=== PATIENT | female | born 1950 | race Caucasian/White ===

== ENCOUNTER 2020-05-22 18:11 | Inpatient (IN) | payer MEDICARE ==
[~2020-05-22] VITALS: Ht 167.6 cm; Wt 56.2 kg
[2020-05-22] MEDS ORDERED: VENL150C2 PO (18:49)
[2020-05-22] MEDS ORDERED: QUET25TA PO (18:49)
[2020-05-22] MEDS: NICOTINE PATCH (21MG) 21 MG PATCH.TD24 TD SCH (19:34)
--- NOTE | 2020-05-22 19:36 | NUR ---
CALL FROM LAB. RAPID COVID NEGATIVE.
--- NOTE | 2020-05-22 19:49 | NUR ---
REPORT GIVEN TO SHANNAN DOMINGUEZ FOR TEMI
--- NOTE | 2020-05-22 19:55 | NUR ---
PT TRANSPORTED TO UNIT ON WHEELCHAIR. NOT IN ANY DISTRESS. PT IS IN STABLE CONDITION FOR TRANSPORT. EMT AT BEDSIDE
[2020-05-22 20:00] VITALS: BP 131/70
--- NOTE | 2020-05-22 20:00 | NUR ---
GPS RN-NOTE:ADMISSION ADMITTED A 69-YR OLD FEMALE, FROM [facility]. ADMITTED ON A 5150 FOR DTS/GD. PER HOLD, PT REPORTED SHE FELT HOPELESS DUE TO FINANCIAL DIFFICULTIES, LOSING JOB AND CONSTANT OVERDOSE ON ALCOHOL. PER PT SHE WANTS TO DUE TO HER AND SON NOT GETTING ALONG. PER NURSE PT WAS FOUND ON STREET SAYING SHE WANTS TO KILL HERSELF. UPON FACE TO FACE ASSESSMENT, PATIENT A/OX3, COOPERATIVE, DEPRESSED AND ANXIOUS AT TIMES. AMBULATORY WITH STEADY GAIT. PT WAS ADVISED OF HER HOLD. PT'S RIGHTS HANDBOOK AND A GUIDE TO PRESCRIPTION MEDICATIONS GIVEN. IN NO APPARENT DISTRESS NOTED. PT BELONGINGS WERE INVENTORIED AND CHECKED FOR CONTRABAND. PT. IS UNDER THE PSYCHIATRIC CARE OF DR. ISSA ORDERS OBTAINED. AND THE MEDICAL CARE OF DR. VELAZQUEZ. IN THE UNIT ASSESSED AND EVALUATED PT. SKIN BODY ASSESSMENT DONE. BED LOCKED AND PLACED IN LOWEST POSITION TO MAINTAIN SAFETY. FALL PRECAUTIONS IMPLEMENTED. WILL CONTINUE TO MONITOR Q15 MINS. FOR SAFETY AND BEHAVIOR. PATIENT PREFERS TO SIGN NON-DISCLOSURE OF INFORMATION DURING HER STAY AT THE HOSPITAL. WILL ENDORSE TO THE DAY SHIFT NURSE FOR CONTINUITY OF CARE.
[2020-05-22 20:38] VITALS: BP 131/70
[2020-05-22] MEDS ORDERED: BLOOD SUGAR DIAGNOSTIC 1 EACH STRIP IN ONE (21:00)
[2020-05-22] MEDS ORDERED: ACETAMINOPHEN 325 MG TABLET PO PRN (21:00)
[2020-05-22] MEDS ORDERED: MAG HYDROX/AL HYDROX/SIMETH 30 ML UDC PO PRN (21:00)
[2020-05-22] MEDS: LORAZEPAM 0.5 MG TABLET PO PRN (21:43)
--- NOTE | 2020-05-22 21:45 | NUR ---
GPS-RN NOTE: ANXIETY PATIENT C/O FEELING ANXIOUS. ADMINISTERED ATIVAN 0.5MG PO ORDERED. WILL CONTINUE TO MONITOR FOR PATIENT'S SAFETY.
[2020-05-22] MEDS ORDERED: QUETIAPINE FUMARATE 25 MG TABLET PO SCH (22:00)
--- NOTE | 2020-05-23 03:47 | NUR ---
GPS-RN NOTE: C/O HEADACHE PATIENT C/O HEADACHE, ON A PAIN SCALE OF 3/10. ADMINISTERED ACETAMINOPHEN 650MG PO ORDERED. WILL CONTINUE TO REASSESS.
--- NOTE | 2020-05-23 04:38 | NUR ---
GPS-RN NOTE: NAUSEA AND VOMITING PATIENT WAS THROWING UP X2 IN MODERATE AMOUNT, WITH FOOD CONTENT. V/S BP 100/55, R18, P74, T98.0, O2 SATURATION AT 98% ON RA. UPON ASSESSMENT, ABDOMEN IS SOFT AND NON-TENDER. PER PT. SHE HAD BOWEL MOVEMENT YESTERDAY. WILL CONTINUE TO MONITOR. 0500- SPOKE WITH ON-CALL EPIC FRUIT GRADER OPERATOR GI, NOTIFIED OF PATIENT'S CURRENT CONDITION WITH NEW ORDER OF ZOFRAN 4MG PO Q6HRS PRN NOTED AND CARRIED OUT. WILL CONTINUE TO MONITOR.
[2020-05-23] MEDS ORDERED: ONDANSETRON 4 MG TAB.RAPDIS ONE (04:56)
[2020-05-23] MEDS ORDERED: ONDANSETRON HCL 4 MG/5 ML SOLUTION PO PRN (05:00)
[2020-05-23] MEDS: ONDANSETRON 4 MG TAB.RAPDIS PO PRN ×2 (05:10→21:58)
[2020-05-23 08:00] VITALS: BP 131/90
[2020-05-23 08:40] LABS: ALBUMIN 3.7 g/dL (3.4-5.0); BILIRUBIN,TOTAL 0.6 mg/dL (0.2-1.0); CREATININE 0.5 mg/dL (0.6-1.3); POTASSIUM 3.6 mmol/L (3.5-5.1); TOTAL PROTEIN, SERUM 7.2 g/dL (6.4-8.2)
[2020-05-23] MEDS ORDERED: VENLAFAXINE XR 150 MG CAP.SR.24H PO SCH (09:00)
[2020-05-23] MEDS: NICOTINE PATCH (21MG) 21 MG PATCH.TD24 TD SCH (09:10)
[2020-05-23] MEDS: LORAZEPAM 0.5 MG TABLET PO PRN ×3 (09:10→19:47)
[2020-05-23] MEDS: TRAMADOL HCL 50 MG TABLET PO PRN (09:10)
--- NOTE | 2020-05-23 09:13 | NUR ---
patient c/o anxiety medicated with Ativan 0.5mg x1 will continue to monitor .
[2020-05-23] MEDS: GABAPENTIN 100 MG CAPSULE PO SCH ×2 (13:52→17:47)
--- NOTE | 2020-05-23 14:39 | NUR ---
RN NOTE :patient c/o anxiety medicated with Ativan 0.5mg x1 will continue to monitor .
[2020-05-23 16:00] VITALS: BP 139/91
--- NOTE | 2020-05-23 16:16 | NUR ---
SAMUEL FAMILY CONTACT: SAMUEL spoke with patient's son Fran Castro ([phone]) who stated he is the DPOA however he is out of town and does not have access to provide the documents right now. Fran stated he and the patient live together at home however have been having conflicts and have discussed alternate living arrangements. Fran stated that he will fruit or nut picker the patient and take her home should she like to return back.
--- NOTE | 2020-05-23 16:16 | NUR ---
SAMUEL INITIAL DISCHARGE PLAN: Patient currently resides at home with her son Fran Castro ([phone]) at [address] [place] [id number]. Patient will return back home upon discharge. SAMUEL spoke with patient's son who stated that he is the DPOA, however cannot provide the documentation a this time because he is on vacation. SAMUEL will continue to work with patient, family, and MD to ensure a safe and proper discharge plan.
[2020-05-23 19:39] VITALS: BP 125/67
[2020-05-23] MEDS: TEMAZEPAM 7.5 MG CAPSULE PO PRN (21:06)
[2020-05-23] MEDS ORDERED: OLANZAPINE 10 MG TABLET PO SCH (22:00)
[2020-05-24 08:00] VITALS: BP 117/89
[2020-05-24] MEDS: GABAPENTIN 100 MG CAPSULE PO SCH (08:40)
[2020-05-24] MEDS: NICOTINE PATCH (21MG) 21 MG PATCH.TD24 TD SCH (08:40)
--- NOTE | 2020-05-24 09:19 | NUR ---
COORDINATION OF CARE: SAMUEL fax[facility] attention to [place]. Addendum: 05/24/20 at 1334 by NUBIA NINO Patient did not get accepted to facility, spoke with Kamla bryanttechnical coordinator.
[2020-05-24] MEDS: LORAZEPAM 0.5 MG TABLET PO PRN ×3 (10:22→22:43)
[2020-05-24] MEDS: TRAMADOL HCL 50 MG TABLET PO PRN ×2 (10:22→16:49)
--- NOTE | 2020-05-24 10:23 | NUR ---
RN NOTE :patient c/o anxiety medicated with Ativan 0.5mg x1 will continue to monitor .
[2020-05-24] MEDS ORDERED: GABAPENTIN 100 MG CAPSULE PO SCH (13:00)
--- NOTE | 2020-05-24 13:34 | NUR ---
COORDINATION OF CARE: SAMUEL faxed patient's referral packet to [facility] ([phone]) attention to Echocardiograph Tech Jarred for review and possible placement.
[2020-05-24] MEDS: GABAPENTIN 300 MG CAPSULE PO SCH ×2 (13:36→16:48)
[2020-05-24 16:00] VITALS: BP 119/58
--- NOTE | 2020-05-24 16:48 | NUR ---
RN NOTE :patient c/o anxiety medicated with Ativan 0.5mg x1 will continue to monitor .
[2020-05-24 19:33] VITALS: BP 113/52
[2020-05-24] MEDS ORDERED: OLANZAPINE 5 MG TABLET PO SCH (22:00)
[2020-05-24] MEDS ORDERED: OLANZAPINE 10 MG TABLET PO SCH (22:00)
--- NOTE | 2020-05-24 22:49 | NUR ---
GPS RN NOTES: PT COMPLAINED OF ANXIETY, RATES ANXIETY LEVEL 7/10. ATIVAN 0.5MG 1TAB GIVEN PO ORDERED AT 2243. PT CURRENTLY LAYING DOWN. WILL CONTINUE TO MONITOR.
[2020-05-25] MEDS: TRAMADOL HCL 50 MG TABLET PO PRN ×3 (00:01→18:00)
--- NOTE | 2020-05-25 00:03 | NUR ---
GPS RN NOTES: PT COMPLAINED OF GENERALIZED BODY PAIN LEVEL OF 6/10. TRAMADOL 50MG 1TAB GIVEN PO ORDERED AT 0001. PT CURRENTLY LAYING DOWN. WILL CONTINUE TO MONITOR.
--- NOTE | 2020-05-25 06:37 | NUR ---
GPS RN CLOSING NOTES: PT AWAKE A/O. CALM AND COOPERATIVE. MED COMPLIANT AND SLEPT FOR 6 HR THIS SHIFT. NO S/S OF DISTRESS AT THIS TIME. RESPIRATION EVEN AND UNLABORED WITH EQUAL RISE AND FALL OF THE CHEST ON ROOM AIR. ALL PATIENT CARE NEEDS MET ANTICIPATED. WILL CONTINUE TO MONITOR AND ENDORSE TO AM SHIFT.
[2020-05-25 08:00] VITALS: BP 119/68
[2020-05-25] MEDS: LORAZEPAM 0.5 MG TABLET PO PRN ×2 (08:13→14:42)
[2020-05-25] MEDS: GABAPENTIN 300 MG CAPSULE PO SCH ×4 (08:13→21:27)
[2020-05-25] MEDS: NICOTINE PATCH (21MG) 21 MG PATCH.TD24 TD SCH (08:13)
--- NOTE | 2020-05-25 09:14 | NUR ---
GPS RN NOTES: PT COMPLAINED OF ANXIETY,ATIVAN 0.5MG 1TAB GIVEN PO ORDERED AT 2243. PT CURRENTLY LAYING DOWN. WILL CONTINUE TO MONITOR.
[2020-05-25] MEDS: MAGNESIUM HYDROXIDE 30 ML UDC PO PRN (10:48)
--- NOTE | 2020-05-25 10:50 | NUR ---
GPS RN NOTES: PT COMPLAINED OF GENERALIZED BODY PAIN LEVEL OF 7/10. TRAMADOL 50MG 1TAB GIVEN PO ORDERED WILL CONTINUE TO MONITOR.
--- NOTE | 2020-05-25 13:32 | NUR ---
SUBSTANCE ABUSE INTERVENTION: Patient was provided with a brief substance abuse intervention and referred to the following substance abuse programs: [facility]stance Abuse Self-helpl[facility] ([phone]); [facility] [address] [place] [address] ([phone]); [facility] [address] [facility] [address] ([phone]); [facility] ([phone]); [facility] ([phone]); [facility] ([phone]); [facility] ([phone]).
--- NOTE | 2020-05-25 14:43 | NUR ---
GPS RN NOTES: PT COMPLAINED OF ANXIETY,ATIVAN 0.5MG 1TAB GIVEN PO ORDERED AT 2243. PT CURRENTLY LAYING DOWN. WILL CONTINUE TO MONITOR.
[2020-05-25 16:00] VITALS: BP 113/69
--- NOTE | 2020-05-25 18:01 | NUR ---
GPS RN NOTES: PT COMPLAINED OF GENERALIZED BODY PAIN LEVEL OF 7/10. TRAMADOL 50MG 1TAB GIVEN PO ORDERED WILL CONTINUE TO MONITOR.
[2020-05-25 20:12] VITALS: BP 131/71
[2020-05-25] MEDS: OLANZAPINE 5 MG TABLET PO SCH (21:27)
[2020-05-25] MEDS: TEMAZEPAM 7.5 MG CAPSULE PO PRN (22:42)
--- NOTE | 2020-05-25 22:42 | NUR ---
GPS-RN NOTE: INSOMNIA PATIENT C/O INABILITY TO SLEEP. ADMINISTERED RESTORIL 7.5MG PO ORDERED PER PT'S REQUEST. WILL CONTINUE TO MONITOR.
[2020-05-26 08:00] VITALS: BP 101/62
[2020-05-26] MEDS: NICOTINE PATCH (21MG) 21 MG PATCH.TD24 TD SCH (08:10)
[2020-05-26] MEDS: GABAPENTIN 300 MG CAPSULE PO SCH ×4 (08:10→21:08)
[2020-05-26] MEDS: LORAZEPAM 0.5 MG TABLET PO PRN ×3 (08:22→22:31)
--- NOTE | 2020-05-26 08:22 | NUR ---
GPS RN NOTES: PT COMPLAINED OF ANXIETY,ATIVAN 0.5MG 1TAB GIVEN PO ORDERED WILL CONTINUE TO MONITOR.
[2020-05-26] MEDS: TRAMADOL HCL 50 MG TABLET PO PRN ×2 (11:01→19:48)
--- NOTE | 2020-05-26 14:56 | NUR ---
GPS RN NOTES: PT COMPLAINED OF ANXIETY,ATIVAN 0.5MG 1TAB GIVEN PO ORDERED WILL CONTINUE TO MONITOR.
[2020-05-26 16:00] VITALS: BP 98/63
[2020-05-26 19:41] VITALS: BP 128/84
--- NOTE | 2020-05-26 19:48 | NUR ---
GPS-RN NOTE: C/O LOWER BACK PAIN PATIENT C/O LOWER BACK PAIN ON A PAIN SCALE OF 7/10. ADMINISTERED ULTRAM 50MG PO ORDERED. WILL CONTINUE TO REASSESS.
[2020-05-26] MEDS: ONDANSETRON 4 MG TAB.RAPDIS PO PRN (20:39)
--- NOTE | 2020-05-26 20:39 | NUR ---
GPS-RN NOTE: PATIENT C/O FEELING NAUSEOUS. V/S STABLE. PATIENT REQUESTED FOR ZOFRAN. ADMINISTERED ZOFRAN 4MG PO ORDERED. WILL CONTINUE TO MONITOR.
[2020-05-26] MEDS: OLANZAPINE 5 MG TABLET PO SCH (21:08)
--- NOTE | 2020-05-26 22:32 | NUR ---
GPS-RN NOTE: ANXIETY PATIENT C/O FEELING ANXIOUS. ADMINISTERED ATIVAN 0.5MG PO ORDERED, PER PT'S REQUEST. WILL CONTINUE TO MONITOR FOR PATIENT'S SAFETY.
--- NOTE | 2020-05-26 23:25 | NUR ---
GPS RN NOTE, PATIENT HAS A COMPLAINT OF CONSTIPATION AND STATES SHE WANT'S TO TAKE MEDICATION FOR HER CONSTIPATION EVERY DAY. DR CJ VELAZQUEZ ON FLOOR DOING ROUNDS. INFORMED DR CJ VELAZQUEZ OF PATIENT'S REQUEST. DR CJ VELAZQUEZ GAVE ORDER FOR DOCUSATE SODIUM 250MG PO DAILY STARTING IN THE A.M. ALL ORDERS NOTED AND CARRIED OUT. WILL CONTINUE TO MONITOR THIS PATIENT WITH THE HELP OF STAFF.
[2020-05-27] MEDS: TEMAZEPAM 7.5 MG CAPSULE PO PRN (00:02)
--- NOTE | 2020-05-27 00:03 | NUR ---
GPS-RN NOTE: INSOMNIA PATIENT C/O INABILITY TO SLEEP. ADMINISTERED RESTORIL 7.5MG PO ORDERED PER PT'S REQUEST. WILL CONTINUE TO MONITOR.
[2020-05-27 08:00] VITALS: BP 103/67
[2020-05-27] MEDS: NICOTINE PATCH (21MG) 21 MG PATCH.TD24 TD SCH (08:09)
[2020-05-27] MEDS: GABAPENTIN 300 MG CAPSULE PO SCH ×4 (08:09→21:29)
[2020-05-27] MEDS: DOCUSATE SODIUM 250 MG CAPSULE PO SCH (08:10)
[2020-05-27] MEDS: LORAZEPAM 0.5 MG TABLET PO PRN ×3 (08:13→22:45)
--- NOTE | 2020-05-27 09:51 | NUR ---
PC HEARING: Patient had his probable cause hearing today and it was upheld for grave disability.
[2020-05-27] MEDS ORDERED: LACTULOSE 10 G/15 ML UDC (PYXIS) PO ONE (10:30)
[2020-05-27] MEDS ORDERED: SORBITOL SOLUTION 30 ML PO ONE (10:30)
[2020-05-27] MEDS: TRAMADOL HCL 50 MG TABLET PO PRN ×2 (10:57→20:21)
[2020-05-27 16:00] VITALS: BP 111/64
[2020-05-27 19:50] VITALS: BP 133/65
--- NOTE | 2020-05-27 20:21 | NUR ---
GPS RN NOTE: PAIN PT. C/O OF 6 KNEE PAIN AND REQUESTED ULTRAM. ADMINISTERED ULTRAM 50 MG PO PRN ORDERED. WILL CONTINUE TO MONITOR
[2020-05-27] MEDS: OLANZAPINE 5 MG TABLET PO SCH (21:29)
--- NOTE | 2020-05-27 22:48 | NUR ---
GPS RN NOTE: ANXIETY PT. C/O OF BEING ANXIOUS AND REQUESTED ATIVAN. ADMINISTERED ATIVAN 0.5 MG PO PRN ORDERED. WILL CONTINUE TO MONITOR FOR SAFETY AND BEHAVIOR
[2020-05-28] MEDS: TEMAZEPAM 7.5 MG CAPSULE PO PRN (00:04)
--- NOTE | 2020-05-28 00:06 | NUR ---
GPS RN NOTE: INSOMNIA PT. C/O OF UNABLE TO SLEEP. ADMINISTERED RESTORIL 7.5 MG PO PRN ORDERED. WILL CONTINUE TO MONITOR FOR SAFETY AND BEHAVIOR.
[2020-05-28] MEDS: NICOTINE PATCH (21MG) 21 MG PATCH.TD24 TD SCH ×2 (07:49→08:12)
[2020-05-28] MEDS: DOCUSATE SODIUM 250 MG CAPSULE PO SCH (07:49)
[2020-05-28] MEDS: GABAPENTIN 300 MG CAPSULE PO SCH ×4 (07:49→21:02)
[2020-05-28 08:00] VITALS: BP 113/63
--- NOTE | 2020-05-28 08:12 | NUR ---
GPS/RN PT REFUSED NICOTINE PATCH 21MG. PT STATES THAT SHE IS NOT SMOKING THAT MUCH AT HOME.
[2020-05-28] MEDS: TRAMADOL HCL 50 MG TABLET PO PRN ×2 (08:46→16:39)
[2020-05-28] MEDS: LORAZEPAM 0.5 MG TABLET PO PRN ×3 (09:57→22:11)
[2020-05-28 16:00] VITALS: BP 119/72
[2020-05-28 20:33] VITALS: BP 98/65
[2020-05-28 20:51] VITALS: BP 117/60
[2020-05-28] MEDS: OLANZAPINE 5 MG TABLET PO SCH (21:03)
[2020-05-28 22:10] VITALS: BP 123/71
--- NOTE | 2020-05-28 22:12 | NUR ---
GPS RN NOTES: ANXIOUS PT C/O OF FEELING ANXIOUS. PT REQUESTED ATIVAN. OFFERED ATIVAN PO PRN 0.5MG. VITALS CHECKED WNL. PT TOLERATED MEDICATION WELL. CONTINUE TO MONITOR.
[2020-05-29 05:30] VITALS: BP 138/70
[2020-05-29] MEDS: TRAMADOL HCL 50 MG TABLET PO PRN ×2 (05:34→13:10)
--- NOTE | 2020-05-29 05:36 | NUR ---
GPS RN NOTES: LEFT KNEE PAIN PT C/O OF LEFT KNEE PAIN 02/25. PT REQUESTED PAIN MEDICATION. OFFERED ULTRAM PRN ORDERED. PT AGREED AND TOLERATED MEDICATION WELL. CONTINUE TO MONITOR.
[2020-05-29] MEDS: NICOTINE PATCH (21MG) 21 MG PATCH.TD24 TD SCH (07:45)
[2020-05-29] MEDS: GABAPENTIN 300 MG CAPSULE PO SCH ×4 (07:52→21:02)
[2020-05-29] MEDS: DOCUSATE SODIUM 250 MG CAPSULE PO SCH (07:52)
[2020-05-29 08:00] VITALS: BP 123/59
[2020-05-29] MEDS: LORAZEPAM 0.5 MG TABLET PO PRN ×3 (08:13→22:16)
[2020-05-29] MEDS: MAGNESIUM HYDROXIDE 30 ML UDC PO PRN (10:07)
[2020-05-29 16:00] VITALS: BP 111/55
[2020-05-29 19:54] VITALS: BP 118/62
[2020-05-29] MEDS: OLANZAPINE 5 MG TABLET PO SCH (21:03)
[2020-05-29 22:05] VITALS: BP 118/69
[2020-05-30] VITALS: BP 128/60
[2020-05-30] MEDS: TEMAZEPAM 7.5 MG CAPSULE PO PRN (00:05)
--- NOTE | 2020-05-30 00:07 | NUR ---
GPS RN NOTES: INSOMNIA PT C/O UNABLE TO SLEEP. PT REQUESTED SLEEPING MEDICATION. OFFERED RESTORIL PRN PO ORDERED. PT AGREED AND TOLERTAED MEDICATION WELL. CONTINUE TO MONITOR
[2020-05-30 04:57] VITALS: BP 123/60
[2020-05-30] MEDS: TRAMADOL HCL 50 MG TABLET PO PRN ×3 (05:05→23:18)
--- NOTE | 2020-05-30 05:06 | NUR ---
GPS RN NOTES: LEFT KNEE PAIN PT C/O OF LEFT KNEE PAIN 02/25. PT REQUESTED PAIN MEDICATION. VITALS CHECKED WNL. OFFERED ULTRAM PRN ORDERED. PT AGREED AND TOLERATED MEDICATION WELL. CONTINUE TO MONITOR.
[2020-05-30] MEDS: LORAZEPAM 0.5 MG TABLET PO PRN ×3 (07:59→22:06)
[2020-05-30 08:00] VITALS: BP 105/67
[2020-05-30] MEDS: DOCUSATE SODIUM 250 MG CAPSULE PO SCH (08:00)
[2020-05-30] MEDS: GABAPENTIN 300 MG CAPSULE PO SCH ×4 (08:00→21:02)
[2020-05-30] MEDS: NICOTINE PATCH (7MG) 7 MG PATCH.TD24 TD SCH (08:00)
--- NOTE | 2020-05-30 08:00 | NUR ---
RN NOTE: ANXIETY PT C/O INCREASING ANXIETY. PT REQUESTING ATIVAN. ATIVAN 0.5 MG PO PRN ADMINISTERED.
[2020-05-30] MEDS ORDERED: NICOTINE PATCH (21MG) 21 MG PATCH.TD24 TD SCH (09:00)
--- NOTE | 2020-05-30 10:10 | NUR ---
Individual Intervention with the Pt: SW met with the pt at bedside and inquired about her discharge disposition. Pt stated that she agrees to go to a SNF and accepted [facility] as a placement option. SW stated that she will inform her as soon as the MD has a discharge date for the pt.
[2020-05-30] MEDS ORDERED: LACTULOSE 10 G/15 ML UDC (PYXIS) PO ONE (12:00)
[2020-05-30] MEDS: SORBITOL SOLUTION 30 ML PO ONE ×2 (12:30→12:42)
--- NOTE | 2020-05-30 12:42 | NUR ---
RN NOTE: MEDICATION REFUSAL PT REFUSED LACTULOSE AND SORBITOL.
[2020-05-30] MEDS: MAGNESIUM HYDROXIDE 30 ML UDC PO PRN (13:08)
--- NOTE | 2020-05-30 13:09 | NUR ---
RN NOTE: ANXIETY AND CONSTIPATION PT C/O INCREASED ANXIETY AND CONSTIPATION. REQUESTING ATIVAN AND MOM. ATIVAN PRN AND MOM PRN ADMINISTERED
--- NOTE | 2020-05-30 14:43 | NUR ---
RN NOTE: PAIN PT C/O /10 LEFT KNEE PAIN. REQUESTING TRAMADOL. TRAMADOL PO PRN ADMINISTERED
[2020-05-30 16:00] VITALS: BP 115/56
[2020-05-30 19:44] VITALS: BP 113/60
[2020-05-30 20:18] VITALS: BP 113/60
[2020-05-30] MEDS ORDERED: OLANZAPINE 5 MG TABLET PO SCH (22:00)
--- NOTE | 2020-05-30 22:07 | NUR ---
GPS RN NOTE: ANXIETY PATIENT VERBALIZED THAT SHE IS FEELING ANXIOUS & REQUESTED TO GET ATIVAN. PRN ATIVAN 0.5 MG 1 TAB PO GIVEN. WILL CONTINUE TO MONITOR.
--- NOTE | 2020-05-30 23:18 | NUR ---
GPS RN NOTE: LEFT KNEE PAIN PATIENT C/O LEFT KNEE PAIN 01/26 & REQUESTED TO TAKE TRAMADOL ONLY AT THIS TIME. PRN TRAMADOL GIVEN ORDERED. VITALS CHECKED & STABLE 105/58, 82, 18, 97.3, 97% AT RA. SNACKS GIVEN & TOLERATED WELL. WILL CONTINUE TO MONITOR CLOSELY FOR ANY CHANGES.
[2020-05-31] MEDS: TEMAZEPAM 7.5 MG CAPSULE PO PRN (01:05)
--- NOTE | 2020-05-31 01:08 | NUR ---
GPS RN NOTE: INSOMNIA PATIENT VERBALIZED THAT SHE IS UNABLE TO SLEEP & WANTED TO TAKE SLEEPING MEDICINE. PRN RESTORIL 7.5 MG 1 CAP PO GIVEN. WILL CONTINUE TO MONITOR.
[2020-05-31] MEDS: TRAMADOL HCL 50 MG TABLET PO PRN ×3 (05:48→19:10)
--- NOTE | 2020-05-31 05:50 | NUR ---
GPS RN NOTE: LEFT KNEE PAIN PATIENT C/O LEFT KNEE PAIN 02/25 & REQUESTED TO TAKE TRAMADOL ONLY AT THIS TIME. PRN TRAMADOL 50 MG GIVEN ORDERED. WILL CONTINUE TO MONITOR CLOSELY FOR ANY CHANGES.
[2020-05-31 08:00] VITALS: BP 112/64
[2020-05-31] MEDS: LORAZEPAM 0.5 MG TABLET PO PRN ×3 (08:15→17:56)
[2020-05-31] MEDS: DOCUSATE SODIUM 250 MG CAPSULE PO SCH (08:15)
[2020-05-31] MEDS: GABAPENTIN 300 MG CAPSULE PO SCH ×3 (08:15→16:13)
--- NOTE | 2020-05-31 08:16 | NUR ---
RN NOTE: ANXIETY PT C/O INCREASING ANXIETY. REQUESTING ATIVAN 0.5 MG PO PRN ADMINISTERED.
[2020-05-31] MEDS: NICOTINE PATCH (7MG) 7 MG PATCH.TD24 TD SCH (08:47)
--- NOTE | 2020-05-31 12:27 | NUR ---
RN NOTE: PAIN PT C/O 11/26 LEFT KNEE PAIN. REQUESTING TRAMADOL. TRAMADOL PO PRN ADMINISTERED.
--- NOTE | 2020-05-31 13:41 | NUR ---
RN NOTE: ANXIETY PT C/O INCREASING ANXIETY. REQUESTING ATIVAN 0.5 MG PO PRN
--- NOTE | 2020-05-31 13:58 | NUR ---
DISCHARGE NOTE: Pt will be discharged at 4:00pm via [facility] ([facility]) [address] [place] [address] P: [phone]. Patient son, Fran ([phone]) has been notified and agrees with discharge plan. Pts mood is euthymic with congruent affect. Pt denies visual/auditory hallucinations and denies suicidal/homicidal ideation. Pt is alert and oriented x4, is ambulatory and well groomed and dressed. Pt will address her substance use with Psychiatrist: Dr. Micaela Fuller [address] [place] [address] [address], [place] [address] [phone] and Studio Camera Operator: Dr Phelps Address: [address] [place] [address] [address], [place] [address] [phone]. Pt signed choice of vendors and it was placed in pts chart. The multidisciplinary exit care form was done, printed, signed, and given to the patient.
[2020-05-31 16:00] VITALS: BP 118/65
--- NOTE | 2020-05-31 17:34 | NUR ---
RN NOTE: REPORT CALLED TO [facility]. REPORT CALLED TO REYNALDO CAMPBELL.
--- NOTE | 2020-05-31 17:56 | NUR ---
RN NOTE: ANXIETY PT C/O INCREASED ANXIETY. REQUESTING ATIVAN. ATIVAN 0.5 MG PO PRN
--- NOTE | 2020-05-31 19:12 | NUR ---
QUALITY ASSURANCE DIRECTOR NOTE: PT TO BE DISCHARGED THIS EVENING TO [facility] IN STABLE CONDITION. PT COMPLIANT WITH MEDICATIONS, COOPERATIVE WITH TREATMENT PLANS. PATIENT DENIES SI/HI AND INSTRUCTED TO GO TO THE CLOSEST ER IF DEVELOPING SI/HI. BEHAVIOR IMPROVED, PSYCHIATRIC TREATMENT PLANS MET, MEDICAL TREATMENT PLANS DEFERRED FOR CONTINUAL MONITORING. EDUCATED PT ABOUT AFTER CARE PLAN AND COPY PROVIDED. PERSONAL BELONGINGS TO BE RETURNED TO PATIENT. MEDICATIONS RECONCILED WITH DR. SOLIS AND DR. ISSA. REPORT GIVEN TO RN AT FACILITY NOTED PRIOR. PATTIENT SIGNED DISCHARGE PAPERWORK. SKIN INTACT ON ADMIT AND D/C
[2020-05-31 19:58] VITALS: BP 137/68
--- NOTE | 2020-05-31 20:36 | NUR ---
GPS RN NOTES: DISCHARGE PT DISCHARGE TODAY ACCOMPANIED BY 2 STARCH COOKER. NURSING REPORT GIVEN. NO SOB. NO RESP DISTRESS. BREATHING EVEN AND UNLABORED. NO PAIN AT THIS TIME. BELONGINGS GIVEN TO THE PATIENT.
== END 2020-05-31 20:40 | DRG 885 ==
LOC: ER 18:16 → GPS 19:20
PROVIDERS: ADMIT Psychiatry & Neurology Psychosomatic Medicine; ATTEND Internal Medicine
DX: F31.9 Bipolar disorder, unspecified (principal); F29 Unspecified psychosis not due to a substance or known physiological condition; F41.9 Anxiety disorder, unspecified; M19.90 Unspecified osteoarthritis, unspecified site; I48.91 Unspecified atrial fibrillation; G89.29 Other chronic pain; R53.1 Weakness; Z73.6 Limitation of activities due to disability; Z96.652 Presence of left artificial knee joint; F10.20 Alcohol dependence, uncomplicated
CPT/HCPCS: 36415; 80053-TC; 80061-TC; 82962-TC; 87081-TC; Q0162